=== PATIENT | female | born 1990 | race American Indian/Alaskan Native ===

== ENCOUNTER 2017-04-01 05:40 | Inpatient (IN) | payer MEDICAID ==
--- NOTE | 2017-03-31 17:38 | History and Physical Report ---
History of Present Illness Date of examination: 03/26/17 Chief complaint: Desires Repeat C/S History of present illness: Past History : 2 Term Births: 1 Living Children: 1 Para: 1 # 1 Delivery date: 2007 Weeks Gestation: 41 Delivery type: Anesthesia type: epidural Delivery location: [place] Sex: Male weight: 6-7 Comments: failure to dilate Past Surgical History: Reviewed history and no changes required: Past Medical History Surgery (Non-front end architect): Abnormal PAP: negative ELMO Exposure: negative Infertility: negative Uterine Anomaly: negative Uterine Surgery (not C/S): negative Other Gynecologic Problems: negative Social Hx: Patient is single Infection History Hx of STD: gonorrhea HIV Risk Eval: low risk Hepatitis B Risk Eval: low risk Personal hx. of genital herpes: no Partner hx. of genital herpes: no Rash, Viral, or Febrile illness since last LMP? no TB Risk: no Infection History Comments: syphylis 2016 treated 2016 Genetic History Congenital Heart Defect: Mom: no Dad: no Mariposa Disease: Mom: no Dad: no Thalassemia Mom: no Dad: no Neural Tube Defect Mom: no Dad: no Down's Syndrome Mom: no Dad: no Juancarlos-Sachs Mom: no Dad: no Sickle Cell Disease/Trait Mom: no Dad: no Hemophilia Mom: no Dad: no Muscular Dystrophy Mom: no Dad: no Cystic Fibrosis Mom: no Dad: no Karoline Chorea Mom: no Dad: no Mental Retardation Mom: no Dad: no Fragile X Mom: no Dad: no Other Genetic/Chromosomal Disorder Mom: no Dad: no Child w/other defect Mom: no Dad: no Enviromental Exposures Xray Exposure: no Medication, drug, or alcohol use since LMP: no Chemical/Other Exposure: no Exposure to Cat Liter: no Hx of Parvovirus (Fifth Disease): no Occupational Exposure to Children: none Active Medications (reviewed today): PNV () Current Allergies (reviewed today): No known allergies Past History Past Medical History: no pertinent history - Obstetrical History Expected Date of Delivery: 04/08/17 Actual Gestation: 38 Week(s) 6 Day(s) Medications and Allergies Active Meds: Active Medications Citric Acid/Sodium Citrate (Bicitra) 30 ml PO ONCE ONE Stop: 04/01/17 05:31 Famotidine (Pepcid) 20 mg IV ONCE ONE Stop: 04/01/17 05:31 Cefazolin Sodium (Ancef/Sterile Water 2 Gm/20 Ml) 2 gm in 20 mls @ 80 mls/hr IV PREOP NR PRN Reason: Protocol Lactated Ringer's (Lactated Ringers) 1,000 mls @ 2,250 mls/hr IV PREOP RY Stop: 04/02/17 05:57 Oxytocin/Sodium Chloride (Pitocin/Ns 20 Unit/1000ml Drip) 20 units in 1,000 mls @ 0 mls/hr IV TITR RY PRN Reason: As Directed Metoclopramide HCl (Reglan) 10 mg IV ONCE ONE Stop: 04/01/17 05:31 - Physical Exam Breasts: Positive: deferred Lungs: Positive: Clear to auscultation, Normal air movement Abdomen: Positive: normal appearance Uterus: Positive: enlarged Results All other labs normal. Assessment and Plan - Patient Problems (1) 39 weeks gestation of Status: Acute (2) Maternal care for scar from previous delivery Status: Acute Qualifiers: Previous delivery type: P Plan to address problem: Consent reviewed and signed . The risks and alternatives for this surgery were reviewed with the patient. She was informed of possible bleeding, infection, injury to bowel, bladder, ureters or other adjacent organs. The patient was instructed/informed the following: The normal length of hospital stay for this procedure.She declines sterilization at this time. Informed ot risk with multiple surgeries. Nothing to eat or drink after midnight the evening prior to surgery. Pre-op instruction sheets given. Wound care instructions given. Infection precautions reviewed, patient to call for any signs or symptoms of infection. The usual discomforts associated with this procedure were detailed. Proper use of pain medicines was reviewed. Patient was given ample opportunity to have all her questions answered before signing informed consent. (3) Gonorrhea affecting Status: Acute Qualifiers: Trimester: T Plan to address problem: treated 03/2017 (4) Syphilis affecting Status: Acute Qualifiers: Trimester: T Plan to address problem: Treated 12/2016
[~2017-04-01 05:40] MED LIST: ANCEF/STERILE WATER 2 GM/20 ML 2 GM/20 ML SYRINGE IV NR; LACTATED RINGERS 1,000 ML IV SCH; PITOCin/NS 20 UNIT/1000ML DRIP 20 UNITS/1,000 ML BAG IV SCH
[2017-04-01] MEDS ORDERED: BICITRA PO ONE (06:10)
[2017-04-01] MEDS ORDERED: PEPCID IV ONE (06:15)
[2017-04-01] MEDS ORDERED: REGLAN IV ONE (06:15)
[2017-04-01 06:31] LABS: Hemoglobin 12.8 gm/dl (10.1-14.3); Mean Corpuscular HGB Conc 34 % (30-34); Mean Corpuscular Hemoglobin 30 pg (28-32); Mean Corpuscular Volume 88 fl (79-97); Platelet Count 191 K/mm3 (140-440); Red Blood Count 4.31 M/mm3 (3.65-5.03); Red Cell Distribution Width 13.8 % (13.2-15.2); White Blood Count 10.1 K/mm3 (4.5-11.0)
[2017-04-01] MEDS ORDERED: NACL 0.9% IR ONE (07:50)
[2017-04-01] MEDS ORDERED: WATER FOR IRRIG STERILE IR ONE (07:50)
[2017-04-01] MEDS ORDERED: NEO SYNEPHRINE/NS Syringe(OR USE) IV ONE (08:00)
--- NOTE | 2017-04-01 09:02 | Post Anesthesia Evaluation ---
- Post Anesthesia Evaluation Patient Participated: Yes Airway Patent: Yes Stable Respiratory Function: Yes Nausea/Vomiting: No Temp > 96.8F: Yes Pain Manageable: Yes Adequeate Hydration: Yes Anesthesia Complications: No Patient on Ventilator: No
--- NOTE | 2017-04-01 09:02 | Anesthesia Day of Surgery ---
Anesthesia Day of Surgery - Day of Surgery Patient Examined: Yes Patient H&P Reviewed: Yes Patient is NPO: Yes
--- NOTE | 2017-04-01 09:02 | Anesthesia Consultation ---
Anesthesia Consult and Med Hx Date of service: 04/01/17 - Airway Anesthetic Teeth Evaluation: Good ROM Head & Neck: Adequate Mental/Hyoid Distance: Adequate Mallampati Class: Class II Intubation Access Assessment: Probably Good - Pulmonary Exam CTA: Yes - Cardiac Exam Cardiac Exam: RRR - Pre-Operative Health Status ASA Pre-Surgery Classification: ASA2 Proposed Anesthetic Plan: Epidural, Spinal - Pulmonary Hx Asthma: No COPD: No Hx Pneumonia: No - Cardiovascular System Hx Hypertension: No - Central Nervous System Hx Seizures: No Hx Psychiatric Problems: No - Endocrine Hx Renal Disease: No Hx End Stage Renal Disease: No Hx Hypothyroidism: No Hx Hyperthyroidism: No - Hematic Hx Anemia: No Hx Sickle Cell Disease: No - Other Systems Hx Alcohol Use: No Hx Obesity: Yes - Additional Comments Anesthesia Medical History Comments: IUP, PREVIOUS
--- NOTE | 2017-04-01 09:28 | Operative Report ---
Operative Report Operative Report: Date: 04/01/2017 Preoperative diagnosis: 1. Intrauterine at 39 weeks 2. Previous delivery desires repeat 3. Declines sterilization Postoperative diagnosis: 1. Intrauterine at 39 weeks 2. Previous delivery desires repeat 3. Declines sterilization Procedure: Low uterine transverse incision for delivery Surgeon: Zahida Emerson MD Sanitation Worker Cleaning Equipment: Janeen Pichardo CST Anesthesia: Epidural Anesthesiologist: Jackson Stanton M.D. Estimated blood loss: 500 mL Urine out: 100 mL Findings: Live born male . Weight 7 lbs. 8 oz. Apgars 9 at 1 minute and 9 at 9 minutes. Grossly normal uterus. tubes and ovaries. Procedure: After risk, benefits, complications, consequences and alternatives for this procedure were discussed with patient and consents were reviewed and signed, she was taken to the OR where epidural anesthesia was placed. She was then placed in the left lateral tilt position, and prepped and draped in the usual sterile fashion. Timeout was performed, and an appropriate level of anesthesia was noted, a Pfannenstiel incision was made and extended to the fascia which was incised and extended in the lateral directions. The overlying fascia was sharply dissected away from the underlying rectus muscles in the superior and inferior directions. The midline was entered bluntly. The vesicouterine fold was incised and with blunt dissection the bladder flap was created. A transverse incision was made in the lower uterine segment and extended in superiolateral direction with finger fractionation. Meconium- stained fluid was noted. The was delivered from cephalic position. Mouth and nose were bulb suctioned. Spontaneous cry and excellent tone were noted. Cord was doubly clamped and cut. The was given to / resuscitation team present. The placenta was manually extracted. The uterus was then exteriorized and cleared of any further products of conception or placental tissue. The incision was reapproximated using 0 Vicryl in a running interlocking stitch. Grossly normal uterus, tubes and ovaries were noted. Once hemostasis was noted, the uterus was allowed back into the pelvic cavity. The pelvis was irrigated with warm normal saline. Again hemostasis was noted . Tisseel applied for further hemostasis. Interceed was then placed to prevent adhesions. Then attention was turned to the rectus muscles. Once hemostasis was noted, the muscles were reapproximated using 0 Vicryl in a simple stitch 1. The fascia was reapproximated using 0 Vicryl and some running stitch. Once hemostasis was noted skin incision was reapproximated using 4-0 Vicryl on a Clark needle in a subcuticular manner. Counts were correct 3. Patient tolerated procedure well state recovery room in stable condition.
[2017-04-01] MEDS ORDERED: SODIUM CHLORIDE FLUSH SYRINGE 10 ML IV NR (10:00)
[2017-04-01] MEDS ORDERED: SODIUM CHLORIDE FLUSH SYRINGE 10 ML IV SCH (10:52)
[2017-04-01] MEDS ORDERED: PHENERGAN PR PRN (10:52)
[2017-04-01] MEDS ORDERED: MYLICON PO PRN (10:52)
[2017-04-01] MEDS ORDERED: PITOCin/NS 20 UNIT/1000ML DRIP 20 UNITS/1,000 ML BAG IV SCH (10:52)
[2017-04-01] MEDS ORDERED: NARCAN 0.4 MG/1 ML IV PRN ×2 (10:52→12:00)
[2017-04-01] MEDS ORDERED: LANSINOH TP PRN (11:30)
[2017-04-01] MEDS ORDERED: CYTOTEC PR PRN (11:30)
[2017-04-01] MEDS ORDERED: HEMABATE IM PRN (11:30)
[2017-04-01] MEDS ORDERED: TYLENOL PO PRN (11:30)
[2017-04-01] MEDS ORDERED: METHERGINE IM PRN (11:30)
[2017-04-01] MEDS ORDERED: BENADRYL IV PRN (11:30)
[2017-04-01] MEDS ORDERED: DILAUDID IV PRN (11:30)
[2017-04-01] MEDS ORDERED: TUCKS PAD TP PRN (11:30)
[2017-04-01] MEDS: ANCEF/NS 1 GM/50 ML 1 GM/50 ML BAG IV SCH ×2 (12:30→19:32)
[2017-04-01] MEDS: TORADOL IV SCH (12:30)
[2017-04-01] MEDS ORDERED: ZOFRAN IV PRN (15:00)
[2017-04-01] MEDS: D5LR 1,000 ML IV SCH ×2 (16:00→22:16)
[2017-04-01 21:35] LABS: Hematocrit 37.8 % (30.3-42.9); Hemoglobin 12.5 gm/dl (10.1-14.3)
[2017-04-01] MEDS ORDERED: MILK OF MAGNESIA PO PRN (22:00)
[2017-04-02] MEDS: TORADOL IV SCH ×2 (00:30→06:47)
[2017-04-02] MEDS ORDERED: BOOSTRIX IM ONE (06:00)
--- NOTE | 2017-04-02 07:43 | Progress Note ---
Assessment and Plan patient doing well, no complaints. lochia scant, VSSAF, postop H&H 12.5/37.8, incision dressing dry (rn will remove during AM care.) Patient ambulating freely around room without complaints. Continue current postop pathway and anticipate d/c home tomorrow if remains stable. - Patient Problems (1) delivery delivered Current Visit: Yes Status: Acute Subjective - Subjective Date of service: 04/02/17 Principal diagnosis: postop day #1 s/p repeat c/s Patient reports: appetite normal, voiding normally, pain well controlled, flatus , ambulating normally, no dizzy ambulation, no nauseated [place]: doing well, bottle feeding Objective - Vital Signs Latest vital signs: Vital Signs Temp Pulse Resp BP BP Pulse Ox 04/02/17 04:45 97.9 F 80 20 101/70 04/02/17 01:00 18 04/02/17 00:30 20 04/01/17 23:40 98.1 F 72 20 103/71 04/01/17 20:50 98.1 F 69 20 105/70 04/01/17 19:23 97.9 F 04/01/17 16:20 97.2 F L 63 20 105/69 96 04/01/17 16:09 67 99 04/01/17 11:00 59 L 20 102/64 100 04/01/17 10:52 65 100 04/01/17 10:50 63 18 94/64 04/01/17 10:10 63 15 105/72 97 04/01/17 10:05 58 L 14 112/69 97 04/01/17 10:00 61 12 109/62 97 04/01/17 09:55 61 13 108/70 97 04/01/17 09:50 71 15 120/81 96 04/01/17 09:45 74 13 109/70 98 04/01/17 09:40 75 13 115/66 99 04/01/17 09:35 72 13 118/63 98 04/01/17 09:30 66 14 111/59 98 04/01/17 09:25 71 15 122/66 98 04/01/17 09:20 67 14 106/59 98 04/01/17 09:15 73 14 108/63 99 04/01/17 09:10 74 15 107/66 96 04/01/17 09:05 83 12 109/65 97 04/01/17 09:00 82 14 112/63 98 04/01/17 08:56 86 16 110/66 97 04/01/17 08:54 97.5 F L 86 16 11066 97 Intake and Output 04/01/17 04/01/17 04/02/17 15:59 23:59 07:59 Intake Total 1690 1023.333 240 Output Total 500 1800 Balance 1190 -776.667 240 Intake: IV 1450 783.333 ANCEF/NS 1 GM/50 ML 1 gm 50 In 50 ml @ 100 mls/hr IV Q8H RY Rx#:[id number] D5lr 1,000 ml @ 125 mls/ 783.333 hr IV DIRECT RY Rx#: [id number] Oral 240 240 240 Output: Urine 500 1800 Indwelling Catheter 300 1800 Other: Total, Intake Amount 240 240 240 Total, Output Amount 300 1800 Voiding Method Indwelling Catheter # Voids Void 800 Estimated Blood Loss 500 - Exam Breasts: Present: normal Cardiovascular: Present: Regular rate Lungs: Present: Clear to auscultation Abdomen: Present: normal appearance, soft Vulva: both: normal Uterus: Present: normal, firm, fundal height at umbilicus Extremities: Present: normal Incision: Present: normal, dry, intact
--- NOTE | 2017-04-02 09:06 | Progress Note ---
Subjective Date of service: 04/02/17 Principal diagnosis: postop day #1 s/p repeat c/s Interval history: Epidural has been removed. No anesthetic related complaints. Objective - Constitutional Vitals: Vital Signs - 12hr 04/01/17 04/02/17 04/02/17 23:40 00:30 01:00 Temperature 98.1 F Pulse Rate 72 Respiratory 20 20 18 Rate Blood Pressure 103/71 [Right] 04/02/17 04:45 Temperature 97.9 F Pulse Rate 80 Respiratory 20 Rate Blood Pressure 101/70 [Right] - Labs CBC & Chem 7: 04/01/17 21:20
[2017-04-02] MEDS: MOTRIN PO PRN ×3 (09:29→23:10)
[2017-04-02] MEDS: PERCOCET 5/325 PO PRN ×3 (09:30→23:10)
[2017-04-02] MEDS ORDERED: Fluarix Quad 2017-2018(36 MOS+ IM ONE (12:00)
[2017-04-03] MEDS: PERCOCET 5/325 PO PRN ×2 (05:08→11:45)
[2017-04-03] MEDS: MOTRIN PO PRN ×2 (05:09→11:46)
--- NOTE | 2017-04-03 11:11 | Progress Note ---
Assessment and Plan patient doing well, desires d./c home today. Lochia scant, VSSAF, H&H stable w /o s/s of anemia. Plan for d/c home with 1 week f/u in office. wound care discussed. - Patient Problems (1) delivery delivered Current Visit: Yes Status: Acute Subjective - Subjective Date of service: 04/03/17 Principal diagnosis: postop day #2 s/p repeat c/s Patient reports: appetite normal, voiding normally, pain well controlled, flatus , ambulating normally, no dizzy ambulation, no nauseated : doing well, bottle feeding Objective - Vital Signs Latest vital signs: Vital Signs Temp Pulse Resp BP BP Pulse Ox 04/03/17 00:15 98.2 F 78 20 103/76 04/02/17 16:46 98.0 F 82 18 113/74 98 Intake and Output 04/02/17 04/03/17 04/03/17 23:59 07:59 15:59 Intake Total 720 360 Balance 720 360 Intake: Oral 720 360 Other: Total, Intake Amount 240 120 # Voids Void 1 1 - Exam Breasts: Present: normal Cardiovascular: Present: Regular rate Lungs: Present: Clear to auscultation, Normal air movement Abdomen: Present: normal appearance, soft Vulva: both: normal Uterus: Present: normal, firm, fundal height at umbilicus Extremities: Present: normal Deep Tendon Reflex Grade: Normal +2 Incision: Present: normal, dry, intact
--- NOTE | 2017-04-03 11:14 | Discharge Summary ---
Providers - Providers Date of Admission: 04/01/17 05:40 Date of discharge: 04/03/17 (desires d/c home) Attending physician: MADAY MAY 04/01/17 10:52 Consult to Synoptic Meteorologist [CONS] Routine Reason For Exam: Primary care physician: MADAY MAY Hospitalization Reason for admission: section Delivery: Procedure: repeat low transverse Incision: normal, dry, intact Other procedures: none complications: none Discharge diagnosis: IUP at term delivered baby: male Hospital course: uncomplicated c/s Condition at discharge: Good Disposition: DC-01 TO HOME OR SELFCARE - Discharge Diagnoses (1) delivery delivered Status: Acute Plan - Discharge Medications Prescriptions: Ibuprofen [Motrin 800 MG tab] 800 mg PO TID PRN #30 tablet PRN Reason: Pain Lidocain2.5%/Prilocai2.5% [Emla] 5 gm TP ONCE #1 tube oxyCODONE /ACETAMINOPHEN [Percocet 5/325 mg] 1 - 2 tab PO Q4HR PRN #20 tablet PRN Reason: Pain - Provider Discharge Summary Activity: routine, no sex for 6 weeks, no heavy lifting 4 weeks, no strenuous exercise Diet: routine Instructions: routine Additional instructions: [] Smoking cessation referral if applicable(refer to patient education folder for contact #) [] Refer to [facility] Booklet Call your doctor immediately for: * Fever > 100.5 * Heavy vaginal bleeding ( >1 pad per hour) * Severe persistent headache * Shortness of breath * Reddened, hot, painful area to leg or breast * Drainage or odor from incision. * Keep incision clean and dry at all times and follow doctor's instructions regarding bathing/showering - Follow up plan Follow up: MADAY MAY MD [Primary Care Provider] - 7 Days (Congratulation!! Please call [phone] to schedule your incision check and your son's circumcision in 1 week. Bring EMLA cream to your son's appointment and await instruction. Call for any questions or concerns. )
[2017-04-03 13:35] VITALS: BP 118/74
== END 2017-04-03 15:00 | disposition home or self-care (01) | DRG 765 ==
LOC: APU 05:40 → OB 10:50
PROVIDERS: ADMIT Obstetrics & Gynecology; ATTEND Obstetrics & Gynecology
PROC: 10D00Z1 Extraction of Products of Conception, Low, Open Approach (ICD-10-PCS; principal; 2017-04-01)
PROC: 3E0234Z Introduction of Serum, Toxoid and Vaccine into Muscle, Percutaneous Approach (ICD-10-PCS; 2017-04-01)
DX: O34.211 Maternal care for low transverse scar from previous cesarean delivery (principal); O98.22 Gonorrhea complicating childbirth; O98.12 Syphilis complicating childbirth; Z68.45 Body mass index [BMI] 70 or greater, adult; Z3A.39 39 weeks gestation of pregnancy; Z37.0 Single live birth; Z23 Encounter for immunization; O99.214 Obesity complicating childbirth; E66.9 Obesity, unspecified; D64.9 Anemia, unspecified; O99.03 Anemia complicating the puerperium
CPT/HCPCS: 36415; 82962; 85014; 85018; 85027; 86592; 86850; 86900; 86901; 90686; 99211; C1765; G0463; J0690; J1885; J2370; J2590; J2765; J7120; J7121

== ENCOUNTER 2017-04-19 14:18 | Emergency (ER) | payer MEDICAID ==
[2017-04-19 15:56] LABS: Basophils % (Auto) 0.3 % (0.0-1.8); Eosinophils % (Auto) 1.3 % (0.0-4.3); Hematocrit 44.1 % (30.3-42.9); Hemoglobin 14.1 gm/dl (10.1-14.3); Mean Corpuscular HGB Conc 32 % (30-34); Mean Corpuscular Hemoglobin 28 pg (28-32); Mean Corpuscular Volume 88 fl (79-97); Red Cell Distribution Width 13.5 % (13.2-15.2); White Blood Count 13.1 K/mm3 (4.5-11.0)
[2017-04-19 15:59] LABS: Alanine Aminotransferase 12 units/L (7-56); Albumin 3.8 g/dL (3.9-5); Albumin/Globulin Ratio 1.1 %; Alkaline Phosphatase 84 units/L (35-129); Anion Gap 18 mmol/L; BUN/Creatinine Ratio 17; Blood Urea Nitrogen 12 mg/dL (7-17); Calcium 9.3 mg/dL (8.4-10.2); Carbon Dioxide 27 mmol/L (22-30); Chloride 96.3 mmol/L (98-107); Glucose 105 mg/dL (65-100); Platelet Count 346 K/mm3 (140-440); Potassium 4.1 mmol/L (3.6-5.0); Sodium 137 mmol/L (137-145); Total Protein 7.2 g/dL (6.3-8.2)
[2017-04-19 19:38] LABS: Bilirubin,Urine NEG (Negative); Blood,Urine LG (Negative); Ketones,Urine NEG (Negative); Leukocyte Esterase,Urine LG (Negative); Mucus,Urine FEW /HPF; Nitrite,Urine NEG (Negative); Protein,Urine <15 mg/dL mg/dL (Negative); Urobilinogen,Urine < 2.0 mg/dL (<2.0)
[2017-04-19 19:43] LABS: WBC,Urine > 182.0 /HPF (0.0-6.0)
[2017-04-19] MEDS ORDERED: ANCEF IM ONE (20:44)
--- NOTE | 2017-04-19 20:54 | Emergency Department Report ---
- General Chief Complaint: Laceration/Recheck/Suture Stated Complaint: INFECTION IN INCESION Time Seen by Provider: 04/19/17 20:19 Source: patient, old records reviewed Mode of arrival: Ambulatory Limitations: No Limitations - History of Present Illness Initial Comments: 26-year-old female with no significant past medical history presents to the hospital complains of purulent drainage from right side of wound 2-3 days. Drainage is bloody and brown and malodorous. She complains of 6/10 stinging pain reported to the right side of her incision. That is constant and worse with palpation. Taking Motrin at home for pain. Patient followed up with her postoperative appointment and reported pain at that time without active drainage. No reports of fever. Patient is breast-feeding one occasion. COMPUTER APPLICATION DEVELOPER: Dr. Gerber - Related Data Home Medications Medication Instructions Recorded Confirmed Last Taken Prenat Vit 17/Iron/Folic/Om3,6 1 mg PO DAILY 04/01/17 04/01/17 03/31/17 10:00 Previous Rx's Medication Instructions Recorded Last Taken Type Ibuprofen [Motrin 800 MG tab] 800 mg PO TID PRN #30 tablet 04/01/17 Unknown Rx Lidocain2.5%/Prilocai2.5% [Emla] 5 gm TP ONCE #1 tube 04/01/17 Unknown Rx oxyCODONE /ACETAMINOPHEN [Percocet 1 - 2 tab PO Q4HR PRN #20 tablet 04/01/17 Unknown Rx 5/325 mg] Cephalexin [Keflex] 500 mg PO Q6HR 7 Days capsule 04/19/17 Unknown Rx Allergies Allergy/AdvReac Type Severity Reaction Status Date / Time No Known Drug Allergies Allergy Unknown Verified 04/01/17 05:54 ED Review of Systems ROS: Stated complaint: INFECTION IN INCESION Other details as noted in HPI Comment: All other systems reviewed and negative Other: Constitutional: No fevers chills or weight loss Eyes: No eye pain visual changes or discharge ENT: No ear pain or throat pain Neck: Denies pain Respiratory: Denies cough wheezing shortness of breath Cardiovascular: Denies chest pain GI: Denies nausea, vomiting, diarrhea : Denies dysuria, urinary frequency, or urgency Musculoskeletal: Denies back pain, joint swelling Skin: As per HPI Neurologic: Denies headache, numbness, weakness Psychiatric: Denies suicidal ideation, hallucinations ED Past Medical Hx - Past Medical History Hx Hypertension: No Hx Congestive Heart Failure: No Hx Diabetes: No Hx Deep Vein Thrombosis: No Hx Renal Disease: No Hx Sickle Cell Disease: No Hx Seizures: No Hx Asthma: No Hx COPD: No Hx HIV: No - Surgical History Past Surgical History?: Yes Additional Surgical History: C section - Social History Smoking Status: Never Smoker Substance Use Type: Alcohol - Medications Home Medications: Home Medications Medication Instructions Recorded Confirmed Last Taken Type Ibuprofen [Motrin 800 MG tab] 800 mg PO TID PRN #30 tablet 04/01/17 Unknown Rx Lidocain2.5%/Prilocai2.5% [Emla] 5 gm TP ONCE #1 tube 04/01/17 Unknown Rx Prenat Vit 17/Iron/Folic/Om3,6 1 mg PO DAILY 04/01/17 04/01/17 03/31/17 10:00 History oxyCODONE /ACETAMINOPHEN [Percocet 1 - 2 tab PO Q4HR PRN #20 tablet 04/01/17 Unknown Rx 5/325 mg] Cephalexin [Keflex] 500 mg PO Q6HR 7 Days capsule 04/19/17 Unknown Rx ED Physical Exam - General Limitations: No Limitations - Other Other exam information: General: No limitations, patient is alert in no acute distress Head exam: Atraumatic, normocephalic Eyes exam: Normal appearance ENT: Moist mucous membrane, normal oropharynx Neck exam: Normal inspection, full range of motion, no meningismus nontender Respiratory exam: Clear to auscultation bilateral, no wheezes, rales, crackles Cardiovascular: Normal rate and rhythm, normal heart sounds Abdomen: Soft, nondistended, tender at right scar only, with normal bowel sounds, no rebound, or guarding Extremity: Full range of motion normal inspection no deformity Back: Normal Inspection, full range of motion, no tenderness Neurologic: Alert, oriented x3, cranial nerves intact, no motor or sensory deficit Psychiatric: normal affect, normal mood Skin: No wound dehiscence. There is an area on the right side of the cyst area and healing wound that has purulent drainage and erythema. Mild tenderness to palpation. ED Course Vital Signs 04/19/17 15:17 Temperature 98.2 F Pulse Rate 87 Blood Pressure 126/94 O2 Sat by Pulse 99 Oximetry - Reevaluation(s) Reevaluation #1: 04/19/17 20:55 Ancef IM ordered for pain. Patient declined pain medication - Consultations Consultation #1: 04/19/17 20:[address] Gerber's partner Dr. Leon. Recommends Keflex and outpatient follow-up ED Medical Decision Making - Lab Data Result diagrams: 04/19/17 15:28 04/19/17 15:28 Lab Results 04/19/17 04/19/17 04/19/17 Range/Units 15:28 15:28 19:00 WBC 13.1 H (4.5-11.0) K/mm3 RBC 5.00 (3.65-5.03) M/mm3 Hgb 14.1 (10.1-14.3) gm/dl Hct 44.1 H (30.3-42.9) % MCV 88 (79-97) fl MCH 28 (28-32) pg MCHC 32 (30-34) % RDW 13.5 (13.2-15.2) % Plt Count 346 (140-440) K/mm3 Lymph % (Auto) 19.3 (13.4-35.0) % [place] % (Auto) 3.9 (0.0-7.3) % Eos % (Auto) 1.3 (0.0-4.3) % Baso % (Auto) 0.3 (0.0-1.8) % Lymph # 2.5 (1.2-5.4) K/mm3 [place] # 0.5 (0.0-0.8) K/mm3 Eos # 0.2 (0.0-0.4) K/mm3 Baso # 0.0 (0.0-0.1) K/mm3 Seg Neutrophils % 75.2 H (40.0-70.0) % Seg Neutrophils # 9.8 H (1.8-7.7) K/mm3 Sodium 137 (137-145) mmol/L Potassium 4.1 (3.6-5.0) mmol/L Chloride 96.3 L (98-107) mmol/L Carbon Dioxide 27 (22-30) mmol/L Anion Gap 18 mmol/L BUN 12 (7-17) mg/dL Creatinine 0.7 (0.7-1.2) mg/dL Estimated GFR > 60 ml/min BUN/Creatinine Ratio 17 % Glucose 105 H (65-100) mg/dL Calcium 9.3 (8.4-10.2) mg/dL Total Bilirubin 0.40 (0.1-1.2) mg/dL AST 13 (5-40) units/L ALT 12 (7-56) units/L Alkaline Phosphatase 84 (35-129) units/L Total Protein 7.2 (6.3-8.2) g/dL Albumin 3.8 L (3.9-5) g/dL Albumin/Globulin Ratio 1.1 % Urine Color Yellow (Yellow) Urine Turbidity Clear (Clear) Urine pH 7.0 (5.0-7.0) Ur Specific [place] 1.014 (1.003-1.030) Urine Protein <15 mg/dl (Negative) mg/dL Urine Glucose (UA) Neg (Negative) mg/dL Urine Ketones Neg (Negative) mg/dL Urine Blood Lg (Negative) Urine Nitrite Neg (Negative) Urine Bilirubin Neg (Negative) Urine Urobilinogen < 2.0 (<2.0) mg/dL Ur Leukocyte Esterase Lg (Negative) Urine WBC (Auto) > 182.0 H (0.0-6.0) /HPF Urine RBC (Auto) 43.0 (0.0-6.0) /HPF U Epithel Cells (Auto) 19.0 H (0-13.0) /HPF Urine WBC Clumps 3+ /HPF Urine Mucus Few /HPF - Medical Decision Making Patient will be treated with Keflex for postoperative wound infection. UA also reveals possible infection and likely contaminated given the high number of epithelial cells and blood. Keflex will cover UTI as well. She received 1 dose of Ancef prior to discharge. Follow-up will be encouraged. - Differential Diagnosis postoperative wound infection, abscess, cellulitis Critical Care Time: No Critical care attestation.: If time is entered above; I have spent that time in minutes in the direct care of this critically ill patient, excluding procedure time. ED Disposition Clinical Impression: Postoperative wound infection, Status post section, Urine leukocytes increased Disposition: - TO HOME OR SELFCARE Is pt being admited?: No Does the pt Need Aspirin: No Condition: Stable Instructions: Wound Infection (ED), Urinary Tract Infection in Women (ED) Additional Instructions: Take the medication as prescribed. Return if symptoms worsen. Prescriptions: Cephalexin [Keflex] 500 mg PO Q6HR 7 Days capsule Referrals: SUNITHA GERBER MD [Staff Physician] - 2-3 Days Time of Disposition: 20:59
[2017-04-20 01:18] VITALS: BP 121/86
== END 2017-04-19 22:00 | disposition home or self-care (01) ==
LOC: ED 14:18
DX: O86.89 Other specified puerperal infections (principal); D72.829 Elevated white blood cell count, unspecified
CPT/HCPCS: 36415; 80053; 81001; 85025; 96372; 99283; J0690

== ENCOUNTER 2018-10-10 12:50 | Inpatient (IN) | payer MEDICAID ==
--- NOTE | 2018-10-10 13:26 | History and Physical Report ---
History of Present Illness Date of examination: 10/10/18 (pt presents to triage with c/o ctx pain) History of present illness: EDC Confirmation: 10/21/2018 Gestational Age: 16 4/7 weeks Past History : 3 Premature Births: 0 Aborta: 0 Elect. Ab: 0 Spont. Ab: 0 Ectopics: 0 # 1 Delivery date: 2007 Weeks Gestation: 41 Delivery type: Anesthesia type: epidural Delivery location: [place] [facility] Sex: Male weight: 6-7 Comments: failure to dilate # 2 Date of Delivery: 04/01/2017 Delivery Type: [facility] Gender: male Weight: 7.50 lbs : 1 minute: 8 5 minutes: 9 Past Medical History: Reviewed history from 03/26/2017 and no changes required: hx + RPR, + GC last Past Surgical History: Reviewed history from 04/01/2017 and no changes required: x2 Past Medical History Social Hx: Patient is single Infection History Hx of STD: syphilis, GC HIV Risk Eval: low risk Hepatitis B Risk Eval: low risk Personal hx. of genital herpes: no Partner hx. of genital herpes: no Rash, Viral, or Febrile illness since last LMP? no Varicella/Chicken Pox Status: Previous Disease Genetic History Congenital Heart Defect: Mom: no Dad: no [place] Disease: Mom: no Dad: no Thalassemia Mom: no Dad: no Neural Tube Defect Mom: no Dad: no Down's Syndrome Mom: no Dad: no Juancarlos-Sachs Mom: no Dad: no Sickle Cell Disease/Trait Mom: no Dad: no Hemophilia Mom: no Dad: no Muscular Dystrophy Mom: no Dad: no Cystic Fibrosis Mom: no Dad: no [place] Chorea Mom: no Dad: no Mental Retardation Mom: no Dad: no Fragile X Mom: no Dad: no Other Genetic/Chromosomal Disorder Mom: no Dad: no Child w/other defect Mom: no Dad: no Enviromental Exposures Xray Exposure: no Medication, drug, or alcohol use since LMP: no Chemical/Other Exposure: no Exposure to Cat Liter: no Hx of Parvovirus (Fifth Disease): no Occupational Exposure to Children: none Active Medications (reviewed today): None Current Allergies (reviewed today): No known allergies Past History - Obstetrical History Expected Date of Delivery: 10/21/18 Actual Gestation: 38 Week(s) 3 Day(s) : 3 Para: 2 (c/s X 2) Hx # Term Pregnancies: 2 Number of Pregnancies: 0 Spontaneous Abortions: 0 Induced : 0 Number of Living Children: 2 Medications and Allergies Allergies Allergy/AdvReac Type Severity Reaction Status Date / Time No Known Drug Allergies Allergy Unknown Verified 04/01/17 05:54 Home Medications Medication Instructions Recorded Confirmed Last Taken Type Ibuprofen [Motrin 800 MG tab] 800 mg PO TID PRN #30 tablet 04/01/17 Unknown Rx Lidocain2.5%/Prilocai2.5% [Emla] 5 gm TP ONCE #1 tube 04/01/17 Unknown Rx Prenat Vit 17/Iron/Folic/Om3,6 1 mg PO DAILY 04/01/17 04/01/17 03/31/17 10:00 History oxyCODONE /ACETAMINOPHEN [Percocet 1 - 2 tab PO Q4HR PRN #20 tablet 04/01/17 Unknown Rx 5/325 mg] cephALEXin [Keflex] 500 mg PO Q6HR 7 Days capsule 04/19/17 Unknown Rx - Physical Exam Breasts: Positive: deferred Cardiovascular: Regular rate, Normal S1, Normal S2 Lungs: Positive: Normal air movement Abdomen: Positive: normal appearance, soft, normal bowel sounds. Negative: distention, tenderness Genitourinary (Female): Positive: normal external genitalia Vulva: both: normal Vagina: Positive: normal moisture. Negative: discharge Cervix: Negative: lesion, discharge Uterus: Positive: normal size, normal contour Adnexa: both: normal Anus/Rectum: Positive: normal perianal skin, heme negative. Negative: rectal mass, hemorrhoids Extremities: Positive: edema Deep Tendon Reflex Grade: Normal +2 - Obstetrical FHR: category 1 Uterine Contraction Monitor Mode: External Cervical Dilatation: 1 (on arrival to Triage) Cervical Effacement Percentage: 100 station: -2 Uterine Contraction Pattern: Regular Uterine Tone Measurement Phase: Resting Uterine Contraction Intensity: Moderate Results Result Diagrams: 10/10/18 13:54 All other labs normal. GBS POSITIVE HBsAg Screen Negative Negative *1 RPR Non Reactive Non Reactive *2 Rubella Antibodies, IgG 2.22 index Immune >0.99 *3 Non-immune <0.90 Equivocal 0.90 - 0.99 Immune >0.99 ABO Grouping O *4 Rh Factor Positive *5 Please note: Prior records for this patient's ABO / Rh type are not available for additional verification. Antibody Screen Negative Negative *6 WBC 9.1 x10E3/uL 3.4-10.8 *7 RBC 4.36 x10E6/uL 3.77-5.28 *8 Hemoglobin 12.5 g/dL 11.1-15.9 *9 Hematocrit 36.6 % 34.0-46.6 *10 MCV 84 fL 79-97 *11 MCH 28.7 pg 26.6-33.0 *12 MCHC 34.2 g/dL 31.5-35.7 *13 RDW 15.2 % 12.3-15.4 *14 Platelets 261 x10E3/uL 150-379 *15 Neutrophils 70 % Not Estab. *16 Lymphs 24 % Not Estab. *17 Monocytes 4 % Not Estab. *18 Eos 2 % Not Estab. *19 Basos 0 % Not Estab. *20 ! Immature Cells <No Reported Value> *21 Neutrophils (Absolute) 6.4 x10E3/uL 1.4-7.0 *22 Lymphs (Absolute) 2.1 x10E3/uL 0.7-3.1 *23 Monocytes(Absolute) 0.3 x10E3/uL 0.1-0.9 *24 Eos (Absolute) 0.2 x10E3/uL 0.0-0.4 *25 Baso (Absolute) 0.0 x10E3/uL 0.0-0.2 *26 ! Immature Granulocytes 0 % Not Estab. *27 ! Immature Grans (Abs) 0.0 x10E3/uL 0.0-0.1 *28 ! NRBC <No Reported Value> *29 Hematology Comments: <No Reported Value> *30 Tests: (2) AFP Tetra ([id number]) ! Results Report *31 ! Test Results: *Screen Negative* *32 Tests: (3) Ct, Ng, Trich vag by FELIX ([id number]) ! Chlamydia by FELIX Negative Negative *55 ! Gonococcus by FELIX Negative Negative *56 ! Trich vag by FELIX [A] Positive Negative *57 Tests: (4) Panel [id number] ([id number]) HIV Screen 4th Generation wRfx Non Reactive Non Reactive *58 Tests: (5) HCV Ab w/Rflx to Verification ([id number]) ! HCV Ab <0.1 s/co ratio 0.0-0.9 *59 Tests: (6) Comment: ([id number]) ! Comment: SPRCS *60 Non reactive HCV antibody screen is consistent with no HCV infection, unless recent infection is suspected or other evidence exists to indicate HCV infection. Tests: (7) Urine Culture, Routine ([id number]) Urine Culture, Routine Final report *61 Tests: (8) Result ([id number]) ! Result 1 No growth Assessment and Plan - Patient Problems (1) Maternal care for scar from previous delivery Onset Date: ~10/10/18 Current Visit: Yes Status: Acute Qualifiers: Previous delivery type: low transverse Qualified Code(s): O34.211 - Maternal care for low transverse scar from previous delivery Plan to address problem: Pt janey mod/strong Q 5-11 min on arrivel Ctx persisted despite IVFs and Terb Repeat SVE 2,100,-1 notified C/S called Orders in EMR Consents signed
[2018-10-10] MEDS: LACTATED RINGERS 1,000 ML IV SCH ×2 (13:40→16:17)
[2018-10-10 14:28] LABS: Basophils % (Auto) 0.2 % (0.0-1.8); Eosinophils % (Auto) 0.2 % (0.0-4.3); Hematocrit 37.7 % (30.3-42.9); Hemoglobin 12.6 gm/dl (10.1-14.3); Lymphocytes # (Auto) 2.2 K/mm3 (1.2-5.4); Lymphocytes % (Auto) 17.4 % (13.4-35.0); Mean Corpuscular HGB Conc 33 % (30-34); Mean Corpuscular Volume 87 fl (79-97); Monocytes # (Auto) 0.9 K/mm3 (0.0-0.8); Platelet Count 240 K/mm3 (140-440); Red Blood Count 4.32 M/mm3 (3.65-5.03); Red Cell Distribution Width 13.8 % (13.2-15.2)
[2018-10-10] MEDS ORDERED: BRETHINE SUB-Q ONE (14:57)
[2018-10-10] MEDS ORDERED: BRETHINE ONE (15:01)
[2018-10-10] MEDS ORDERED: PEPCID IV ONE (15:37)
[2018-10-10] MEDS ORDERED: BICITRA PO ONE (15:37)
[2018-10-10] MEDS ORDERED: REGLAN IV ONE (15:37)
--- NOTE | 2018-10-10 15:41 | Progress Note ---
Assessment and Plan - Patient Problems (1) Maternal care for scar from previous delivery Onset Date: ~10/10/18 Current Visit: Yes Status: Acute Qualifiers: Previous delivery type: low transverse Qualified Code(s): O34.211 - Maternal care for low transverse scar from previous delivery Subjective - Subjective Date of service: 10/10/18 Interval history: EDC Confirmation: 10/21/2018 Gestational Age: 16 4/7 weeks Past History : 3 Premature Births: 0 Aborta: 0 Elect. Ab: 0 Spont. Ab: 0 Ectopics: 0 # 1 Delivery date: 2007 Weeks Gestation: 41 Delivery type: Anesthesia type: epidural Delivery location: [place] [facility] Sex: Male weight: 6-7 Comments: failure to dilate # 2 Date of Delivery: 04/01/2017 Delivery Type: [facility] Gender: male Weight: 7.50 lbs : 1 minute: 8 5 minutes: 9 Past Medical History: Reviewed history from 03/26/2017 and no changes required: hx + RPR, + GC last Past Surgical History: Reviewed history from 04/01/2017 and no changes required: x2 Past Medical History Social Hx: Patient is single Infection History Hx of STD: syphilis, GC HIV Risk Eval: low risk Hepatitis B Risk Eval: low risk Personal hx. of genital herpes: no Partner hx. of genital herpes: no Rash, Viral, or Febrile illness since last LMP? no Varicella/Chicken Pox Status: Previous Disease Genetic History Congenital Heart Defect: Mom: no Dad: no Mariposa Disease: Mom: no Dad: no Thalassemia Mom: no Dad: no Neural Tube Defect Mom: no Dad: no Down's Syndrome Mom: no Dad: no Juancarlos-Sachs Mom: no Dad: no Sickle Cell Disease/Trait Mom: no Dad: no Hemophilia Mom: no Dad: no Muscular Dystrophy Mom: no Dad: no Cystic Fibrosis Mom: no Dad: no [place] Chorea Mom: no Dad: no Mental Retardation Mom: no Dad: no Fragile X Mom: no Dad: no Other Genetic/Chromosomal Disorder Mom: no Dad: no Child w/other defect Mom: no Dad: no Enviromental Exposures Xray Exposure: no Medication, drug, or alcohol use since LMP: no Chemical/Other Exposure: no Exposure to Cat Liter: no Hx of Parvovirus (Fifth Disease): no Occupational Exposure to Children: none Active Medications (reviewed today): None Current Allergies (reviewed today): No known allergies Patient reports: movement normal, contractions Objective - Vital Signs Vital Signs: Vital Signs - 12hr 10/10/18 13:24 Temperature 97.6 F Respiratory 18 Rate - Exam Cervical Dilatation: 2 Cervical Effacement Percentage: 100 station: -1 Uterine Contraction Pattern: Regular Uterine Contraction Intensity: Moderate - Labs Labs: Abnormal Labs 10/10/18 13:54 WBC 12.6 H [place] # 0.9 H Seg Neutrophils % 75.2 H Seg Neutrophils # 9.5 H Laboratory Results - last 24 hr 10/10/18 10/10/18 13:54 13:54 WBC 12.6 H RBC 4.32 Hgb 12.6 Hct 37.7 MCV 87 MCH 29 MCHC 33 RDW 13.8 Plt Count 240 Lymph % (Auto) 17.4 [place] % (Auto) 7.0 Eos % (Auto) 0.2 Baso % (Auto) 0.2 Lymph # 2.2 [place] # 0.9 H Eos # 0.0 Baso # 0.0 Seg Neutrophils % 75.2 H Seg Neutrophils # 9.5 H Blood Type O POSITIVE Antibody Screen Negative
[2018-10-10] MEDS ORDERED: SUBLIMAZE ONE (15:55)
[2018-10-10] MEDS ORDERED: PITOCin/NS 20 UNIT/1000ML DRIP 20 UNITS/1,000 ML BAG IV SCH (16:00)
[2018-10-10] MEDS ORDERED: ANCEF/STERILE WATER 2 GM/20 ML 2 GM/20 ML SYRINGE IV NR (16:00)
[2018-10-10] MEDS ORDERED: LACTATED RINGERS 1,000 ML IV SCH (16:00)
[2018-10-10] MEDS ORDERED: ZOFRAN IV PRN (16:02)
[2018-10-10] MEDS ORDERED: NARCAN 0.4 MG/1 ML IV PRN ×2 (16:02→18:02)
[2018-10-10] MEDS ORDERED: PHENERGAN PO PRN (16:02)
[2018-10-10] MEDS ORDERED: PHENERGAN PR PRN (16:02)
--- NOTE | 2018-10-10 16:02 | Anesthesia Day of Surgery ---
Anesthesia Day of Surgery - Day of Surgery Patient Examined: Yes Patient H&P Reviewed: Yes Patient is NPO: Yes Beta Blockers: No Cardiac Clearance: No Pulmonary Clearance: No Yaw's Test: N/A
--- NOTE | 2018-10-10 16:02 | Anesthesia Consultation ---
Anesthesia Consult and Med Hx - Airway Anesthetic Teeth Evaluation: Good ROM Head & Neck: Adequate Mental/Hyoid Distance: Adequate Mallampati Class: Class II Intubation Access Assessment: Good - Pulmonary Exam CTA: Yes - Cardiac Exam Cardiac Exam: RRR - Pre-Operative Health Status ASA Pre-Surgery Classification: ASA3 Proposed Anesthetic Plan: Spinal - Pulmonary Hx Smoking: No Hx Asthma: No Hx Respiratory Symptoms: No SOB: No COPD: No Home Oxygen Therapy: No Hx Pneumonia: No Hx Sleep Apnea: No - Cardiovascular System Hx Hypertension: No Hx Coronary Artery Disease: No Hx Heart Attack/AMI: No Hx Angina: No Hx Percutaneous Transluminal Coronary Angioplasty (PTCA): No Hx Cardia Arrhythmia: No Hx Pacemaker: No Hx Internal Defibrillator: No Hx Valvular Heart Disease: No Hx Heart Murmur: No Hx Peripheral Vascular Disease: No - Central Nervous System Hx Neuromuscular Disorder: No Hx Seizures: No CVA: No Hx Back Pain: No Hx Psychiatric Problems: No - Gastrointestinal Hx Ulcer: No Hx Gastroesophageal Reflux Disease: No - Endocrine Hx Renal Disease: No Hx End Stage Renal Disease: No Hx Cirrhosis: No Hx Liver Disease: No Hx Insulin Dependent Diabetes: No Hx Non-Insulin Dependent Diabetes: No Hx Thyroid Disease: No Hx Hypothyroidism: No Hx Hyperthyroidism: No - Hematic Hx Anemia: No Hx Sickle Cell Disease: No - Other Systems Hx Alcohol Use: No Hx Substance Use: No Hx Cancer: No Hx Obesity: Yes
[2018-10-10] MEDS ORDERED: NACL 0.9% IR ONE (16:55)
[2018-10-10] MEDS ORDERED: WATER FOR IRRIG STERILE IR ONE (16:55)
[2018-10-10] MEDS ORDERED: SODIUM CHLORIDE FLUSH SYRINGE 10 ML IV NR (17:00)
[2018-10-10] MEDS ORDERED: TORADOL ONE (17:34)
--- NOTE | 2018-10-10 18:00 | Operative Report ---
Operative Report Operative Report: Date of procedure: 10/10/2018 Pre-operative diagnosis: 38 week gestation Latent labor Previous 2 Post-operative diagnosis: Same plus meconium thick particulate Procedure name(s): Repeat low transverse section via Pfannenstiel skin incision Surgeon: Dr. Guevara Property Maintenance Technician: Radha Aburto, certified nurse actuarial intern Anesthesia: Epidural EBL: 500 mL Urine output: 250 mL of clear urine out at the end of the procedure Fluids: 1500 mL Findings: Liveborn male weight 7 lbs. 8 oz. Apgars of 8 and 9 at one and 5 minutes Very well-developed lower uterine segment a partial window started to form but incision was still intact Nuchal cord 1 arm cord 1 Thick particulate meconium Grossly normal fallopian tubes and ovaries bilaterally No intra-abdominal adhesions Indications: Patient presented to triage complaining of lower abdominal pain along incisional line. Patient was noted to be having contractions. Patient did receive terbutaline as well as IV hydration without resolution of contractions or pain. Patient was also noted to have change in cervix. Decision was made to proceed with section as patient was in labor. Procedure: Patient was taking to the operating room. Patient was then prepped and draped in sterile fashion after anesthesia was found to be adequate. A low transverse skin incision was made with the scalpel through previous incisional scar and carried down to the underlying layer of fascia with the Bovie. The fascia was then incised in the midline and this incision was extended bilaterally with the Bovie. The superior aspect of the fascia was grasped with Jaron clamps tented upward and dissected off of the anterior rectus muscles with the scalpel. In similar fashion the inferior aspect of the fascia was grasped with Jaron clamps tented upward and dissected off of the anterior rectus muscles. The rectus muscles were then bluntly divided in the midline. The peritoneum was identified and entered into sharply. The bladder blade was placed. A lower transverse uterine incision was made with the scalpel and extended bilaterally with blunt dissection. Artificial rupture of membranes was performed yielding thick particulate meconium stained fluid. The infant's head was then delivered atraumatically. The anterior shoulder and rest of infant delivered without difficulty. Nuchal cord 1 was noted and easily reduced. Arm cord 1 also was noted and easily reduced. The umbilical cord was clamped x2. The cord was cut. The was then placed in sterile bassinet. If it was also noted to have solid stool coming from rectum at time of delivery. The cord blood was collected. The placenta was manually extracted in its entirety. The uterus was exteriorized and cleared of all clots and debris. The uterine incision was closed using 0 Vicryl in a running locking fashion. Several [id number] sutures were used along the incision to secure excellent hemostasis. The posterior cul-de-sac was copiously irrigated. The uterus was returned to the abdomen. The gutters were also irrigated. The anterior rectus muscles were reapproximated using 3-0 Vicryl. Interceed was placed along the superior aspect of the rectus muscles. The anterior rectus fascia was reapproximated using 0 Vicryl in a running fashion. The subcuticular fat was reapproximated using 2-0 Vicryl in a running fashion. The skin was reapproximated with 4-0 Monocryl in a subcuticular stitch. The patient tolerated the procedure well. Sponge lap and needle counts were all correct x3. Patient was taken to the recovery room awake and in stable condition.
[2018-10-10] MEDS ORDERED: MORPHINE IV PRN (18:02)
[2018-10-10] MEDS ORDERED: TORADOL IV PRN (18:02)
[2018-10-10] MEDS ORDERED: TUCKS PAD TP PRN (18:02)
[2018-10-10] MEDS ORDERED: LANSINOH TP PRN (18:02)
--- NOTE | 2018-10-10 18:36 | Post Anesthesia Evaluation ---
- Post Anesthesia Evaluation Patient Participated: Yes Airway Patent: Yes Stable Respiratory Function: Yes Nausea/Vomiting: No Temp > 96.8F: Yes Pain Manageable: Yes Adequeate Hydration: Yes Anesthesia Complications: No Block Receding Appropriately: Yes Patient on Ventilator: No
[2018-10-10] MEDS ORDERED: D5LR 1,000 ML IV SCH (19:00)
[2018-10-10] MEDS: ANCEF/NS 1 GM/50 ML 1 GM/50 ML BAG IV SCH (23:40)
[2018-10-11] MEDS ORDERED: BOOSTRIX IM ONE (06:00)
[2018-10-11 06:33] LABS: Hematocrit 33.4 % (30.3-42.9); Hemoglobin 11.3 gm/dl (10.1-14.3)
--- NOTE | 2018-10-11 08:31 | Progress Note ---
Assessment and Plan patient doing well postop day #1: ambulating, + flatus, , postop H&H 11.3/33.4, VSSAF. Continue postop pathway. Pt to shower this afternoon and remove dressing. - Patient Problems (1) delivery delivered Current Visit: No Status: Acute Subjective - Subjective Date of service: 10/11/18 Principal diagnosis: postop day #1 s/p repeat c/s Patient reports: appetite normal, voiding normally, pain well controlled, flatus, ambulating normally, no dizzy ambulation, no nauseated [place]: doing well, nursing well Objective - Vital Signs Latest vital signs: Vital Signs Temp Pulse Resp BP BP Pulse Ox 10/11/18 06:00 97.8 F 85 20 106/68 98 10/11/18 00:06 98.2 F 96 H 20 101/65 97 10/10/18 23:38 20 10/10/18 20:42 97.9 F 99 H 20 113/73 97 10/10/18 18:50 97.6 F 78 20 136/76 99 10/10/18 18:35 88 17 128/68 99 10/10/18 18:20 85 18 131/75 96 10/10/18 18:05 92 H 18 119/73 98 10/10/18 18:00 83 17 126/66 98 10/10/18 17:55 90 19 107/52 98 10/10/18 17:53 97.7 F 91 H 18 104/52 98 10/10/18 13:24 97.6 F 18 Intake and Output 10/10/18 10/11/18 10/11/18 23:59 07:59 15:59 Intake Total 2292.5 480 Output Total 425 1200 Balance 1867.5 -720 Intake: IV 2292.5 Lactated Ringers 1,000 ml 392.5 @ 150 mls/hr IV DIRECT RY Rx#:[id number] Oral 480 Output: Urine 425 1200 Indwelling Catheter 1200 Other: Total, Intake Amount 240 Total, Output Amount 800 Estimated Blood Loss 400 - Exam Breasts: Present: normal, Cardiovascular: Present: Regular rate Lungs: Present: Clear to auscultation, Normal air movement Abdomen: Present: normal appearance, soft Vulva: both: normal Uterus: Present: normal, firm, fundal height at umbilicus Extremities: Present: normal Incision: Present: normal, dry, dressed - Labs Labs: Abnormal lab results 10/10/18 Range/Units 13:54 WBC 12.6 H (4.5-11.0) K/mm3 [place] # 0.9 H (0.0-0.8) K/mm3 Seg Neutrophils % 75.2 H (40.0-70.0) % Seg Neutrophils # 9.5 H (1.8-7.7) K/mm3
[2018-10-11] MEDS: ANCEF/NS 1 GM/50 ML 1 GM/50 ML BAG IV SCH (11:00)
[2018-10-11] MEDS: IBUPROFEN PO PRN ×2 (11:25→23:18)
[2018-10-11] MEDS: NORCO 5/325 PO PRN ×2 (11:28→23:17)
[2018-10-12] MEDS: IBUPROFEN PO PRN ×2 (11:22→20:43)
[2018-10-12] MEDS: NORCO 5/325 PO PRN ×2 (11:22→20:43)
--- NOTE | 2018-10-12 13:59 | Progress Note ---
Assessment and Plan POD 2 Patient reports feeling well, no complaints. She reports pain is well controlled with medications. Fundus is firm, ML, U/2. Vaginal bleeding is minimal, patient denies any heavy bleeding or clots. Incision is well- approximated, healing well, no bleeding or drainage, no s/s infection. Steri strips in place. Patient reports breast feeding is going well, no breast complaints. VSSAF. Reviewed good hygiene for incision site. Encouraged to continue use of IS and frequent ambulation. Patient desires discharge tomorrow. Continue post op pathway. Subjective - Subjective Date of service: 10/12/18 Principal diagnosis: postop day #2 s/p repeat c/s Patient reports: appetite normal, voiding normally, pain well controlled, ambulating normally : doing well Objective - Vital Signs Latest vital signs: Vital Signs Temp Pulse Resp BP BP Pulse Ox 10/12/18 08:25 98.1 F 75 20 114/72 94 10/12/18 00:05 98.8 F 72 20 126/75 98 10/11/18 23:18 18 10/11/18 23:17 18 10/11/18 15:57 98.1 F 82 20 104/68 99 Intake and Output 10/11/18 10/12/18 10/12/18 23:59 07:59 15:59 Intake Total 240 480 120 Balance 240 480 120 Intake: Oral 240 480 120 Other: Total, Intake Amount 240 240 120 # Voids Indwelling Catheter 1 Void 1 1 - Exam Breasts: Present: normal Cardiovascular: Present: Regular rate, Normal S1, Normal S2 Lungs: Present: Clear to auscultation Abdomen: Present: normal appearance, soft, normal bowel sounds Vulva: both: normal Uterus: Present: normal, firm Extremities: Present: normal Incision: Present: normal, dry, intact
--- NOTE | 2018-10-13 06:55 | Discharge Summary ---
Providers - Providers Date of Admission: 10/10/18 15:40 Date of discharge: 10/13/18 (pt agrees with d/c) Attending physician: NAZ CHANG Primary care physician: NAZ CHANG Hospitalization Reason for admission: section, IUP at term Delivery: Procedure: repeat low transverse Episiotomy: none Laceration: none Incision: normal, dry, intact Other procedures: none complications: none Discharge diagnosis: IUP at term delivered [place] baby: male Hospital course: uncomplicated repeat section Pt awake caring for NB No c/o voiced VSS FF below umb Lochia scant Incision D&I H&H stable No s/sx of anemia Doing well s/p section P: d/c today with instructions RTO 1 week postop care Condition at discharge: Good Disposition: DC-01 TO HOME OR SELFCARE - Discharge Diagnoses (1) delivery delivered Status: Acute Comment: RTO 1 week postop care Plan - Discharge Medications Prescriptions: Lidocain2.5%/Prilocai2.5% [Emla] 2 gm TP ONCE #1 tube Ibuprofen [Motrin 800 MG tab] 800 mg PO Q6HR PRN #30 tablet PRN Reason: Pain , Severe (7-10) oxyCODONE /ACETAMINOPHEN [Percocet 5/325] 1 tab PO Q4HR #30 tab - Provider Discharge Summary Activity: routine, no sex for 6 weeks, no heavy lifting 4 weeks, no strenuous exercise Diet: routine Instructions: routine Additional instructions: [] Smoking cessation referral if applicable(refer to patient education folder for contact #) [] Refer to [facility]'s [facility] Booklet Call your doctor immediately for: * Fever > 100.5 * Heavy vaginal bleeding ( >1 pad per hour) * Severe persistent headache * Shortness of breath * Reddened, hot, painful area to leg or breast * Drainage or odor from incision. * Keep incision clean and dry at all times and follow doctor's instructions regarding bathing/showering - Follow up plan Follow up: NAZ CHANG MD [Primary Care Provider] - 7 Days (Congratulations! Please call [phone] to schedule your postoperative visit and your son's circumcision in one week. Bring the EMLA cream with you to his visit. Do NOT use at home. Take medications as prescribed. Call with any concerns.)
[2018-10-13] MEDS: NORCO 5/325 PO PRN (09:51)
[2018-10-13] MEDS: IBUPROFEN PO PRN (09:52)
[2018-10-13 16:33] VITALS: BP 112/66
== END 2018-10-13 17:00 | disposition home or self-care (01) | DRG 766 ==
LOC: TRG 12:50 → APU 15:40 → OB 19:17
PROVIDERS: ADMIT Obstetrics & Gynecology; ATTEND Obstetrics & Gynecology
PROC: 10D00Z1 Extraction of Products of Conception, Low, Open Approach (ICD-10-PCS; principal; 2018-10-10)
PROC: 3E0234Z Introduction of Serum, Toxoid and Vaccine into Muscle, Percutaneous Approach (ICD-10-PCS; 2018-10-11)
DX: O34.211 Maternal care for low transverse scar from previous cesarean delivery (principal); Z3A.38 38 weeks gestation of pregnancy; Z37.0 Single live birth; O99.824 Streptococcus B carrier state complicating childbirth; O99.214 Obesity complicating childbirth; O69.81X0 Labor and delivery complicated by cord around neck, without compression, not applicable or unspecified; E66.01 Morbid (severe) obesity due to excess calories; Z71.3 Dietary counseling and surveillance; Z23 Encounter for immunization
CPT/HCPCS: 36415; 59025; 85014; 85018; 85025; 86592; 86850; 86900; 86901; 88307; 96360; G0378; J0690; J1885; J2590; J2765; J3010; J3105; J7120; J7121

== ENCOUNTER 2021-06-16 12:59 | Outpatient (CLI) | payer MEDICAID ==
[2021-06-16 13:31] VITALS: BP 119/79
[2021-06-16] MEDS ORDERED: LACTATED RINGERS 1,000 ML IV SCH (14:15)
== END 2021-06-16 16:04 | disposition home or self-care (01) ==
LOC: TRG 12:59 → APU 13:00 → TRG 16:04
PROVIDERS: ATTEND Obstetrics & Gynecology
DX: O62.9 Abnormality of forces of labor, unspecified (principal); O99.213 Obesity complicating pregnancy, third trimester; E66.9 Obesity, unspecified; Z3A.38 38 weeks gestation of pregnancy
CPT/HCPCS: 59025; 96360; 96361; J7120